=== PATIENT | male | born 1960 | race Two or more races ===

== ENCOUNTER 2021-08-15 12:49 | Inpatient (IN) | payer OTHER ==
[~2021-08-15] VITALS: Ht 165.1 cm; Wt 77.1 kg
[2021-08-15] MEDS ORDERED: ZOCOR20 MG PO (14:18)
[2021-08-15] MEDS ORDERED: LEVOTHYROXINE25 MCG PO (14:18)
[2021-08-15] MEDS ORDERED: COZAAR25 MG PO (14:18)
[2021-08-15] MEDS ORDERED: PLAVIX75 MG PO (14:19)
[2021-09-05] MEDS ORDERED: CHOLESTYRAMINE L4 GM PO (09:42)
[2021-09-05] MEDS ORDERED: ACID CONTROLLER20 MG PO (09:43)
[2021-09-05] MEDS ORDERED: LOPERAMIDE2 MG PO (09:43)
[2021-09-05] MEDS ORDERED: ULTRAM50 MG PO (09:44)
== END 2021-09-05 12:38 | disposition home or self-care (01) | DRG 330 ==
LOC: SURH 08-17 12:33 → O/R 08-24 08:00 → SURH 08-24 08:00
PROVIDERS: ADMIT Surgery; ATTEND Surgery
PROC: 0DTP4ZZ Resection of Rectum, Percutaneous Endoscopic Approach (ICD-10-PCS; 2021-08-24)
PROC: 0DBN4ZZ Excision of Sigmoid Colon, Percutaneous Endoscopic Approach (ICD-10-PCS; 2021-08-24)
PROC: 07BC4ZZ Excision of Pelvis Lymphatic, Percutaneous Endoscopic Approach (ICD-10-PCS; 2021-08-24)
PROC: 0DJD8ZZ Inspection of Lower Intestinal Tract, Via Natural or Artificial Opening Endoscopic (ICD-10-PCS; 2021-08-24)
PROC: 0D1B4Z4 Bypass Ileum to Cutaneous, Percutaneous Endoscopic Approach (ICD-10-PCS; principal; 2021-08-24 07:00)
DX: C20 Malignant neoplasm of rectum (principal); K91.89 Other postprocedural complications and disorders of digestive system; K56.7 Ileus, unspecified; N17.8 Other acute kidney failure; K60.3 Anal fistula; E86.0 Dehydration; E87.8 Other disorders of electrolyte and fluid balance, not elsewhere classified; Z20.822 Contact with and (suspected) exposure to COVID-19

== ENCOUNTER 2021-08-17 05:43 | Day surgery (SDC) | payer OTHER ==
[~2021-08-17 05:43] MED LIST: COZAAR25 MG PO; LEVOTHYROXINE25 MCG PO; PLAVIX75 MG PO; ZOCOR20 MG PO
== END 2021-08-17 12:10 | disposition home or self-care (01) ==
LOC: AMB-ENDOS 05:43
PROVIDERS: ATTEND Surgery
DX: D12.5 Benign neoplasm of sigmoid colon (principal); Z20.822 Contact with and (suspected) exposure to COVID-19; Z85.048 Personal history of other malignant neoplasm of rectum, rectosigmoid junction, and anus; E03.9 Hypothyroidism, unspecified; I67.2 Cerebral atherosclerosis; I10 Essential (primary) hypertension

== ENCOUNTER 2022-05-11 12:00 | Inpatient (IN) | payer OTHER ==
[~2022-05-11] VITALS: Ht 165.1 cm; Wt 76.2 kg
[~2022-05-11 12:00] MED LIST changes: +ACID CONTROLLER20 MG PO; +CHOLESTYRAMINE L4 GM PO; +LOPERAMIDE2 MG PO; +ULTRAM50 MG PO
[2022-05-18] MEDS ORDERED: SIMVASTATIN40 MG (08:57)
[2022-05-18] MEDS ORDERED: MAXIMUM D3325 MCG (08:57)
[2022-05-20] MEDS ORDERED: OXYCODONE HCL5 MG PO (10:19)
[2022-05-20] MEDS ORDERED: HYOSCYAMINE0.125 M1 SL (10:19)
== END 2022-05-20 12:46 | disposition home or self-care (01) | DRG 348 ==
LOC: O/R 05-17 10:09 → SURH 05-17 10:09
PROVIDERS: ADMIT Surgery; ATTEND Surgery
PROC: 0WQFXZ2 Repair Abdominal Wall, Stoma, External Approach (ICD-10-PCS; 2022-05-17)
PROC: 0DJD8ZZ Inspection of Lower Intestinal Tract, Via Natural or Artificial Opening Endoscopic (ICD-10-PCS; 2022-05-17)
PROC: 0DBB4ZZ Excision of Ileum, Percutaneous Endoscopic Approach (ICD-10-PCS; principal; 2022-05-17 18:30)
DX: Z43.2 Encounter for attention to ileostomy (principal); C20 Malignant neoplasm of rectum; K91.89 Other postprocedural complications and disorders of digestive system; K56.7 Ileus, unspecified